=== PATIENT | male | born 1975 | race Two or more races ===

== ENCOUNTER 2024-12-11 20:36 | Emergency (ER) | payer MEDICARE, MEDICAID ==
[~2024-12-11] VITALS: Ht 167.6 cm; Wt 91.0 kg
[2024-12-11 21:31] LABS: Hematocrit 44.8 % (41.0-53.0); Hemoglobin 15.6 g/dL (13.5-17.5); Mean Corpuscular Hemoglobin 30.4 pg (28.0-32.0); Mean Corpuscular Volume 87.4 fL (80.0-100.0); Nucleated Red Blood Cells % 0.1 %
[2024-12-11 21:45] LABS: Anion Gap 5 (5-15); Calcium 8.8 mg/dL (8.7-10.4); Carbon Dioxide 29 mmol/L (20-31); Chloride 105 mmol/L (98-107); Potassium 4.4 mmol/L (3.5-5.1); Sodium 139 mmol/L (136-145)
[2024-12-11 21:51] LABS: BUN/Creatinine Ratio 11.3 (10.0-20.0); Blood Urea Nitrogen 11 mg/dL (9-23); Glucose 95 mg/dL (74-106)
--- NOTE | 2024-12-11 22:08 | ED.PDOC ---
Psychiatric HPI Comments This patient is a morbidly obese 49-year-old male who was brought in by EMS today due to suicidal ideations for the past few days. Patient states he has a schizophrenic who has not utilize medication in quite some time. Patient states that he has had suicidal ideations with a past few days that worsened today. Patient denies any homicidal ideations. Patient states he would like to get some psychiatric assistance and help with restarting his medications. Patient denies any fever nausea or vomiting. Chief Complaint: Suicidal Time Seen by MD: 20:45 Reviewed Notes: Nurses Notes, Preflight Inspector Notes Information Source: Patient, Emergency Med Personnel Mode of Arrival: EMS Severity: Able to Care for Self Severity of Pain: None Severity of Mental Status: Severe Severity of Symptoms: Severe Timing: Days Duration: Since onset Prehospital treatment: None Presents with: Depression, Suicidal Ideation History of: Depression, Schizophrenia Past Medical History PAST MEDICAL HISTORY: Schizophrenia Surgical History: Denies all surgeries Family History Family History: Reviewed,noncontributory to illness, No family hx of Cancer, No family hx of DM, No family hx of Heart lilli, No family hx of HTN, No family hx ofKidney lilli, No family hx of Liver lilli, No family hx of Lung lilli, No family hx of Stroke Social History Smoker: Non-Smoker Alcohol: Denies ETOH Use Drugs: Denies Drug Use Lives In: Other (Board and care facility) Constitutional: denies: chills, diaphoresis, fatigue, fever, malaise, sweats, weakness, others EENTM: denies: blurred vision, double vision, ear bleeding, ear discharge, ear drainage, ear pain, ear ringing, eye pain, eye redness, hearing loss, mouth pain, mouth swelling, nasal discharge, nose bleeding, nose congestion, nose pain, photophobia, tearing, throat pain, throat swelling, voice changes, others Respiratory: denies: cough, hemoptysis, orthopnea, SOB at rest, shortness of breath, SOB with excertion, stridor, wheezing, others Cardiovascular: denies: chest pain, dizzy spells, diaphoresis, Dyspnea on exertion, edema, irregular heart beat, left arm pain, lightheadedness, palpitations, PND, syncope, others Gastrointestinal: denies: abdomen distended, abdominal pain, blood streaked bowels, constipated, diarrhea, dysphagia, difficulty swallowing, hematemesis, melena, nausea, poor appetite, poor fluid intake, rectal bleeding, rectal pain, vomiting, others Genitourinary: denies: burning, dysuria, flank pain, frequency, hematuria, incontinence, penile discharge, penile sore, pain, testicle pain, testicle swelling, urgency, others Neurological: denies: dizziness, fainting, headache, left sided numbness, left sided weakness, numbness, paresthesia, pre-existing deficit, right sided numbness, right sided weakness, seizure, speech problems, tingling, tremors, weakness, others Musculoskeletal: denies: back pain, gout, joint pain, joint swelling, muscle pain, muscle stiffness, neck pain, others Integumetry: denies: bruises, change in color, change in hair/nails, dryness, laceration, lesions, lumps, rash, wounds, others Allergic/Immunocompromised: denies: Difficulty Healing, Frequent Infections, Hives, Itching, others Hematologic/Lymphatic: denies: anemia, blood clots, easy bleeding, easy bruising, swollen glands, others Endocrine: denies: excessive hunger, excessive sweating, excessive thirst, excessive urination, flushing, intolerance to cold, intolerance to heat, unexplained weight gain, unexplained weight loss, others Psychiatric: reports: depression, schizophrenia; denies: anxiety, bipolar disorder, hopeless, panic disorder, sleepless, suicidal, others Physical Exam General Appearance: Moderate Distress (Due to psychiatric concerns and suicidal ideations. Patient is not well kempt and dirty.), Normal HEENT: Normal ENT Inspection, Pharynx Normal, TMs Normal Neck: Full Range of Motion, Non-Tender, Normal, Normal Inspection Respiratory: Chest Non-Tender, Lungs Clear, No Accessory Muscle Use, No Respiratory Distress, Normal Breath Sounds Cardiovascular: No Edema, No JVD, No Murmur, No Gallop, Normal Peripheral Pulses, Regular Rate/Rhythm Breast Exam: Deferred Gastrointestinal: No Organomegaly, Non Tender, No Pulsatile Mass, Normal Bowel Sounds, Soft Genitalia: Deferred Pelvic: Deferred Rectal: Deferred Extremities: No calf tenderness, Normal capillary refill, Normal inspection, Normal range of motion, Non-tender, No pedal edema Neurologic: Alert Cerebellar Function: NOT DONE Reflexes: NOT DONE Skin: Dry, Normal Color, Warm Lymphatic: No Adenopathy Was a procedure done? Was a procedure done?: No Psych Differential Dx Psych. Differential Dx: Anxiety, Depression, Schizoprenia, Suicidal X-Ray, Labs, Meds, VS Vital Signs Date Time Temp Pulse Resp B/P (MAP) Pulse Ox O2 Delivery O2 Flow Rate FiO2 12/11/24 20:36 97.8 72 16 127/87 72 97.8 Lab Test 12/11/24 21:14 Range/Units White Blood Count 9.6 4.4-10.8 10^3/uL Red Blood Count 5.13 4.5-5.90 10^6/uL Hemoglobin 15.6 13.5-17.5 g/dL Hematocrit 44.8 41.0-53.0 % Mean Corpuscular Volume 87.4 80.0-100.0 fL Mean Corpuscular Hemoglobin 30.4 28.0-32.0 pg Mean Corpuscular Hemoglobin Concent 34.8 32.0-36.0 g/dL Red Cell Distribution Width 14.5 H 11.8-14.3 % Platelet Count 332 140-450 10^3/uL Mean Platelet Volume 6.9 6.9-10.8 fL Neutrophils (%) (Auto) 73.4 37.0-80.0 % Lymphocytes (%) (Auto) 18.4 10.0-50.0 % Monocytes (%) (Auto) 5.8 0.0-12.0 % Eosinophils (%) (Auto) 1.6 0.0-7.0 % Basophils (%) (Auto) 0.8 0.0-2.0 % Neutrophils # (Auto) 7.1 1.6-8.6 10 ^3/uL Lymphocytes # (Auto) 1.8 0.4-5.4 10 ^3/uL Monocytes # (Auto) 0.6 0-1.3 10 ^3/uL Eosinophils # (Auto) 0.2 0-0.8 10 ^3/uL Basophils # (Auto) 0.1 0-0.2 10 ^3/uL Nucleated Red Blood Cells 0.1 % Sodium Level 139 136-145 mmol/L Potassium Level 4.4 3.5-5.1 mmol/L Chloride Level 105 98-107 mmol/L Carbon Dioxide Level 29 20-31 mmol/L Anion Gap 5 5-15 Blood Urea Nitrogen 11 9-23 mg/dL Creatinine 0.97 0.700-1.30 mg/dL Glomerular Filtration Rate Calc 97 >90 mL/min BUN/Creatinine Ratio 11.3 10.0-20.0 Serum Glucose 95 74-106 mg/dL Calcium Level 8.8 8.7-10.4 mg/dL Plasma/Serum Blood Alcohol < 3.0 <10 mg/dL X-Ray, Labs, Meds, VS Comment Studies were pending at time of this note. Patient will receive a tele psych evaluation for medication assistance and probable placement. Tele psych consult was completed with Dr. Recio. He advised a 200 mg Quintapine dose to be dispensed q.h.s. as he will attempt to find the inpatient care for the patient. If patient wants to leave the facility, contact Dr. Recio or tele psych for a probable 5150 hold. Time of 1ST Reevaluation: 22:07 Reevaluation 1ST: Unchanged Consultation: PCP, Psychiatry Patient Education/Counseling: Diagnosis, Treatment Family Education/Counseling: Diagnosis, Treatment Departure 1 Departure Time of Disposition: 22:07 Impression: Primary Impression: Suicidal ideation Additional Impression: Schizophrenia Disposition: 30 STILL A PATIENT Condition: Fair Discharged With: Self Critical Care Note Critical Care Time?: No Stability Stability form required: No Heart Score Heart Score: Heart Score Response (Comments) Value History N/A 0 EKG N/A 0 Age N/A 0 Risk Factors N/A 0 Troponin N/A 0 Total 0 JOAQUIN REN PAC Dec 11, 2024 22:08
--- NOTE | 2024-12-12 00:49 | DVHINCON2 ---
Date of Service if different f: Dec 12, 2024 Time of Service: 00:48 Consult Consult Note PSYCHIATRY ED NEW CONSULT HPI: 49 yo pt with PPH of depression, DELON and psychosis presents to ED BIBA for safety, psychiatric stabilization, and possible med initiation/optimization in setting of AH, depression, and passive SI. Psychiatry consulted for safety evaluation and recommendations in context of current presentation Pt reports "my mind is sick, i am just over this life, this life is crap, what the point of living?" Over past several weeks experiencing worsening depressed mood, hopelessness/helplessness, negative thoughts, difficulty with focus, poor sleep, low self-worth, amotivation, some decline in self-care, NC/NT AH, and unspecified anxiety symptoms to include emotional dysregulation, mood reactivity, restlessness, racing thoughts, and irritability although some symptoms appear chronic in nature. Also intermittent fleeting SI with with plan to shoot self although no means or intent. Identifies primary stress as "loneliness", lack of relationships, limited support system, and ongoing struggles with PSA. Denies HI//paranoia/catatonia/jeanna Does not have active outpt MH services established at this time Currently not on any psychotropic agents, unclear prior psych med trials DELON hx: Denies ETOH, THC or IDU prior to admission although some hx of THC/ETOH/meth dependency, last used all several weeks ago, never IVDU, never previously in any drug/etoh tx programs in past SH: Single, no children, unemployed/ssi, lives by self, limited support system noted. Unknown trauma hx FH: Denies FH of psych hospitalizations, suicide attempts, or completed suicides PMH: No acute medical/chronic pain issues, hx of seizures/TBI, HIV/hep C, cardiac dz, or recent head injuries, NKDA Some hx of SI and remote hx of SIB/SA/PSG resulting in prior psych hospitalizations, none in several decades. Denies history of violence, aggression, or assaultive behaviors. Denies recent hx of impulsivity, attention seeking behaviors, anger outbursts, emotional dysregulation, mood reactivity,or engaging in risky/reckless behaviors. Denies any legal problems. Does not have access to firearms MSE: General Appearance/Behavior: Alert/awake; appears stated age, overweight, fair grooming/hygiene; calm and cooperative, minimal eye contact, no PMA/PMR, bit bizarre Speech: coherent Thought Process: L/L/GD, concrete Thought Content: Abnormal Thoughts/Perceptions: denies dissociative symptoms Homicidality / Violent Thoughts: adamantly denies HI Suicidality: passive SI Hallucinations: +AH Delusions: denies paranoia, persecutory, or grandiose delusions Obsessions /compulsions: None Judgment/Insight: fair/marginal Mood & Affect: "depressed" with mood-congruent, somewhat restricted/appropriate Orientation: oriented x 3 Attention/Concentration: appears intact Cognition: grossly intact Assessment: 49 yo pt with PPH of depression, DELON and psychosis presents to ED BIBA for safety, psychiatric stabilization, and possible med initiation/optimization in setting of AH, depression, and passive SI. Pt currently expressing some SI with plan to shoot self. Limited protective factors presently. Not on any psychotropics. No outpt MH services at present Pt medically cleared in ED Acute safety risk remains slightly elevated and is appropriate for inpatient psychiatric admission for further safety, psychiatric stabilization, and possible medication initiation/optimization. Pt willing to transfer to inpt psych facility voluntarily. Consider 5150 hold for DTS ONLY if needed for transfer or if no voluntary beds are available. Pt may also benefit from subst abuse/MH resources during this admission Primary Diagnosis: Major Depressive disorder, moderate, w/PF. PSA (ETOH/THC/METH), in partial remission Recommend VOL transfer to inpt psych facility for higher level of care 1:1 sitter is recommended Maintain suicide precautions Recommend starting quetiapine 200 mg qhs - first dose now Risks/benefits/alternative treatments discussed, informed consent provided by pt If patient later refuses voluntary hospitalization/ requests to be discharged from ED prior to transfer, please reconsult telepsych services to evaluate for 5150 hold. Pt verbalized understanding and is receptive to above tx plan This case was discussed with ED nurse/provider and all parties in agreement with above tx plan Jose Recio MD Plan discussed with: Patient JOSE RECIO MD Dec 12, 2024 00:49
[2024-12-12 07:21] VITALS: PULSE 66; RESP 16
[2024-12-12 13:00] VITALS: RESP 13; O2SAT 98
[2024-12-12] MEDS: LORazepam 2MG/ML-1ML VIAL IM ONE (16:37)
[2024-12-12 19:30] VITALS: BP 137/91; PULSE 61; RESP 16; TEMP 98; O2SAT 98
== END 2024-12-12 17:32 ==
LOC: EDBD 20:36 → ER 20:36
DX: R45.851 Suicidal ideations (principal); F20.9 Schizophrenia, unspecified; E66.01 Morbid (severe) obesity due to excess calories; Z68.32 Body mass index [BMI] 32.0-32.9, adult
CPT/HCPCS: 36415; 80048; 80320; 85025; 96372; 99285; J2060